=== PATIENT | female | born 1945 | race Caucasian/White ===

== ENCOUNTER 2019-03-01 16:22 | Outpatient (REF) | payer OTHER, SELFPAY ==
[2019-03-01 21:07] LABS: HCT 45.9 % (36.0-46.0); HGB 15.6 g/dL (12.0-15.5); Mean Corpuscular Hemoglobin 32.2 pg (27.0-33.0); Mean Corpuscular Volume 94.8 fL (80-95); Mean Platelet Volume 11.9 fL (8.0-11.0); Platelet Count 220 x1000/uL (130-400); RBC 4.84 m/cumm (4.00-5.20); RBC Distribution Width 13.1 % (11.7-14.6)
[2019-03-01 21:37] LABS: Vitamin B12 301 pg/mL (193-986)
== END 2019-03-01 16:42 ==
LOC: NCHCN 16:22
PROVIDERS: Visit Provider Family Medicine
DX: G62.9 Polyneuropathy, unspecified (principal)
CPT/HCPCS: 85027; 82607

== ENCOUNTER 2019-03-15 09:43 | Outpatient (REF) | payer OTHER, SELFPAY ==
[2019-03-15 21:48] LABS: Glucose 95 mg/dL (74-106)
[2019-03-15 21:52] LABS: Hemoglobin A1C 5.8 % (4.5-6.2)
== END 2019-03-15 10:03 ==
LOC: NCHCN 09:43
PROVIDERS: Visit Provider Family Medicine
DX: R73.01 Impaired fasting glucose (principal)
CPT/HCPCS: 82947; 83036

== ENCOUNTER 2020-09-22 16:23 | Outpatient (REF) | payer OTHER, SELFPAY ==
[2020-09-22 21:09] LABS: Calculated LDL 139 mg/dL (<100); Cholesterol 211 mg/dL (<200); HDL Cholesterol 41 mg/dL (40-60); Triglyceride 156 mg/dL (<150)
== END 2020-09-22 16:24 | disposition home or self-care (01) ==
LOC: NCHCN 16:23
PROVIDERS: Visit Provider Family Medicine
DX: R73.03 Prediabetes (principal); I48.0 Paroxysmal atrial fibrillation; E78.89 Other lipoprotein metabolism disorders
CPT/HCPCS: 80061

== ENCOUNTER 2022-06-10 13:58 | Outpatient (REF) | payer MEDICARE, SELFPAY ==
--- OUTSIDE RECORDS SUMMARY | 2022-06-10 14:04 | XMS_ITS | CCD ---
Author Name Unknown Address [address] [place] [address] [phone] Organization Unknown Address [address] [place] [address] [phone] Care Team Providers Care Senior Regulatory Affairs Specialist Name Role Phone REED SERNA Attending Physician [phone] REED SERNA Rounding (Secondary) Physician [phone] Vital Signs Unknown or Not Available. Allergies Allergy Code Allergy Type Reaction Status NKA - NO KNOWN ALLERGIES 0 Drug allergy Active Procedures Unknown or Not Available. History of Immunizations Unknown or Not Available. Problems Problem Code Start Date Resolved Date Status Asthma 055332962 Active History of cholecystectomy 963768174 Active Seasonal allergy 132773048 Active Pneumonia 404202470 Active Results Unknown or Not Available. Active Medications Medication Code Dose Units Frequency Route Modificatio n Start Date/Time Loratadine 10MG Oral Tablet 227930 10 MILLIGRAMS NEEDED, DAILY ORAL 09/28/2015 07:56 Prescription Detail TAKE 10 MILLIGRAMS ORAL NEEDED, DAILY PULMICORT FLEXHALER 180MCG/ACTUATI O 0 1 EACH TWICE A DAY INHALATION 09/28/2015 07:56 Prescription Detail 1 EACH INHALATION TWICE A DAY Medications Administered During Visit Unknown or Not Available. Encounters Encounter Diagnosis Diagnosis Code Start Date Other chest pain [id number] 08/05/2021 Social History Smoking Status Code Start Date End Date Never smoker [id number] Patient Decision Aids Unknown or Not Available. Discharge Instructions You were admitted to [facility] on 08/05/2021 09:06 with a principal diagnosis of Other chest pain You were discharged from [facility] on 08/05/2021 00:00 Should you have any questions prior to discharge, please contact a member of your healthcare team. If you have left the hospital and have any questions, please contact your primary care physician. Chief Complaint and Reason For Visit Unknown or Not Available. Function Status Unknown or Not Available. Plan of Care Unknown or Not Available. Referral/Transition of Care Unknown or Not Available.
--- OUTSIDE RECORDS SUMMARY | 2022-06-10 14:04 | XMS_ITS | CCD ---
Author Name Unknown Address [address] [place] [address] [phone] Organization Unknown Address [address] [place] [address] [phone] Care Team Providers Care Portable Sawmill Operator Name Role Phone MOLLY JI Attending Physician [phone] MOLLY JI Rounding (Secondary) Physician [phone] Vital Signs Unknown or Not Available. Allergies Allergy Code Allergy Type Reaction Status NKA - NO KNOWN ALLERGIES 0 Drug allergy Active Procedures Unknown or Not Available. History of Immunizations Unknown or Not Available. Problems Problem Code Start Date Resolved Date Status Asthma [id number] Active History of cholecystectomy 169536546 Active Seasonal allergy 794491207 Active Pneumonia 888857227 Active Results Unknown or Not Available. Active Medications Medication Code Dose Units Frequency Route Modificatio n Start Date/Time Loratadine 10MG Oral Tablet 111378 10 MILLIGRAMS NEEDED, DAILY ORAL 09/28/2015 07:56 Prescription Detail TAKE 10 MILLIGRAMS ORAL NEEDED, DAILY PULMICORT FLEXHALER 180MCG/ACTUATI O 0 1 EACH TWICE A DAY INHALATION 09/28/2015 07:56 Prescription Detail 1 EACH INHALATION TWICE A DAY Medications Administered During Visit Unknown or Not Available. Encounters Encounter Diagnosis Diagnosis Code Start Date Idiopathic osteoarthritis [id number] 2021 Social History Smoking Status Code Start Date End Date Never smoker [id number] Patient Decision Aids Unknown or Not Available. Discharge Instructions You were admitted to [facility] on 02/08/2022 10:44 with a principal diagnosis of Unilateral primary osteoarthritis, right knee You were discharged from [facility] on 02/08/2022 00:00 Should you have any questions prior [...]
--- OUTSIDE RECORDS SUMMARY | 2022-06-10 14:04 | XMS_ITS | CCD ---
Author Name Unknown Address [address] [place] [address] [phone] Organization Unknown Address [address] [place] [address] [phone] Care Team Providers Care Employment Service Specialist Name Role Phone RONEN ESCOBEDO Attending Physician [phone] RONEN ESCOBEDO Rounding (Secondary) Physician [phone] Vital Signs Unknown or Not Available. Allergies Allergy Code Allergy Type Reaction Status NKA - NO KNOWN ALLERGIES 0 Drug allergy Active Procedures Unknown or Not Available. History of Immunizations Unknown or Not Available. Problems Problem Code Start Date Resolved Date Status Asthma 744746960 Active History of cholecystectomy 593419037 Active Seasonal allergy 682488562 Active Pneumonia 894085296 Active Results Unknown or Not Available. Active Medications Medication Code Dose Units Frequency Route Modificatio n Start Date/Time Loratadine 10MG Oral Tablet 464288 10 MILLIGRAMS NEEDED, DAILY ORAL 09/28/2015 07:56 Prescription Detail TAKE 10 MILLIGRAMS ORAL NEEDED, DAILY PULMICORT FLEXHALER 180MCG/ACTUATI O 0 1 EACH TWICE A DAY INHALATION 09/28/2015 07:56 Prescription Detail 1 EACH INHALATION TWICE A DAY Medications Administered During Visit Unknown or Not Available. Encounters Encounter Diagnosis Diagnosis Code Start Date Idiopathic osteoarthritis [id number] 2022 Social History Smoking Status Code Start Date End Date Never smoker [id number] Patient Decision Aids Unknown or Not Available. Discharge Instructions You were admitted to [facility] on 05/10/2022 00:00 with a principal diagnosis of Unilateral primary osteoarthritis, right knee You were discharged from [facility] on 05/10/2022 00:00 Should you have any questions prior [...]
--- OUTSIDE RECORDS SUMMARY | 2022-06-10 14:04 | XMS_ITS | CCD ---
Author Name Unknown Address [address] [place] [address] [phone] Organization Unknown Address [address] [place] [address] [phone] Care Team Providers Care Computer Hardware Developer Name Role Phone MOLLY JI Attending Physician [phone] MOLLY JI Rounding (Secondary) Physician [phone] Vital Signs Unknown or Not Available. Allergies Allergy Code Allergy Type Reaction Status NKA - NO KNOWN ALLERGIES 0 Drug allergy Active Procedures Unknown or Not Available. History of Immunizations Unknown or Not Available. Problems Problem Code Start Date Resolved Date Status Asthma 614389366 Active History of cholecystectomy 363852752 Active Seasonal allergy 017846123 Active Pneumonia 168773645 Active Results Unknown or Not Available. Active Medications Medication Code Dose Units Frequency Route Modificatio n Start Date/Time Loratadine 10MG Oral Tablet 595948 10 MILLIGRAMS NEEDED, DAILY ORAL 09/28/2015 07:56 Prescription Detail TAKE 10 MILLIGRAMS ORAL NEEDED, DAILY PULMICORT FLEXHALER 180MCG/ACTUATI O 0 1 EACH TWICE A DAY INHALATION 09/28/2015 07:56 Prescription Detail 1 EACH INHALATION TWICE A DAY Medications Administered During Visit Unknown or Not Available. Encounters Encounter Diagnosis Diagnosis Code Start Date Idiopathic osteoarthritis [id number] 2021 Social History Smoking Status Code Start Date End Date Never smoker [id number] Patient Decision Aids Unknown or Not Available. Discharge Instructions You were admitted to [facility] on 12/09/2021 11:43 with a principal diagnosis of Unilateral primary osteoarthritis, right knee You were discharged from [facility] on 12/09/2021 00:00 Should you have any questions prior [...]
[2022-06-10 21:10] LABS: Calculated LDL 113 mg/dL (<100); Cholesterol 177 mg/dL (<200); HDL Cholesterol 46 mg/dL (40-60); Triglyceride 92 mg/dL (<150)
[2022-06-10 21:24] LABS: Vitamin D 25 Total 24.4 ng/mL (30-100)
== END 2022-06-10 13:59 | disposition home or self-care (01) ==
LOC: NCHCN 13:58
PROVIDERS: Visit Provider Family Medicine
DX: M85.88 Other specified disorders of bone density and structure, other site (principal); E78.89 Other lipoprotein metabolism disorders
CPT/HCPCS: 80061; 82306